=== PATIENT | female | born 1960 | race Caucasian/White ===

== ENCOUNTER 2016-03-14 10:02 | Day surgery (SDC) | payer BC ==
[~2016-03-14 10:02] MED LIST: ACETAMINOPHEN 500 MG TABLET PO PRN; HYDROmorphone HCL 2 MG/ML VIAL IV PRN; MAG HYDROX/ALUMINUM HYD/SIMETH 30 ML UDC PO PRN; MAGNESIUM HYDROXIDE 30 ML UDC PO PRN; ONDANSETRON HCL/PF 2 MG/ML VIAL IV PRN; PROMETHAZINE HCL 25 MG in DEXTROSE 5 % IN WATER 50 ML IV PRN; RINGERS SOLUTION,LACTATED 1,000 ML IV PRN; ROPIVACAINE HCL/PF 40 MG in NORMAL SALINE 16 ML IJ PRN; ZOLPIDEM TARTRATE 5 MG TABLET PO PRN; ceFAZolin SODIUM 1 GM VIAL IV PRN; diphenhydrAMINE HCL 50 MG/ML VIAL IV PRN
[2016-03-14] MEDS ORDERED: RINGERS SOLUTION,LACTATED 1,000 ML IV ONE (10:46)
[2016-03-14] MEDS ORDERED: BUPIVACAINE HCL/EPINEPHRINE 10 ML VIAL IJ ONE ×2 (11:20)
--- NOTE | 2016-03-14 12:26 | OR ---
Operative Report - Dictated Report Narrative: Date: 03/14/2016 Physician: Nahun Jackson M.D. Court Bailiff Or Sheriff: Juan Gonzalez PA-C Preoperative diagnosis: Left Knee medial meniscus tear, chondral injury of medial femoral condyle Postoperative diagnosis: Left Knee medial and lateral meniscus tears, chondral injury of medial femoral condyle Procedure: Left knee arthroscopy with partial medial and lateral meniscectomies , abrasion chondroplasty of medial femoral condyle Anesthesia: MAC Plus local Complications: None Estimated blood loss: Minimal Tourniquet time: None Specimens: None Retained implants: None Drains: None Indications: Jeannette Is a 55 year-old female who has been followed in my clinic with complaints of knee pain consistent with suspected medial meniscal and medial femoral condyle pathology. Physical exam and diagnostic imaging were consistent with these complaints and concern for medial meniscal and medial femoral condyle pathology. Conservative measures have failed including, but not limited to, passage of time, activity modification, medications, and injections. The risks, benefits, and alternatives were discussed in clinic. The risks being , bleeding, infection, blood clots, nerve, tendon, ligament , blood vessel injury, persistent pain, arthrosis, need for additional procedures, and persistent symptoms. Consent was obtained in the clinic. Procedure: After marking the correct extremity in the preoperative holding area, a timeout was performed in the operating room. IV antibiotics consisting of 1 g of Ancef were administered prior to the procedure. A well-padded tourniquet was applied to the operative upper thigh. The leg was prepped and draped in a standard sterile fashion. 0.5% Marcaine with epinephrine was infused into the projected portal sites as well as the intra-articular space. A kush incision was made for inferior lateral portal. A blunt trocar and cannula was introduced into the knee. The suprapatellar pouch revealed small chondral debris and no significant plica. The medial patella facet showed grade 1 chondral changes. The lateral patella facet showed no significant chondral changes. The trochlea showed scattered grade 1 chondral changes. The medial gutter revealed no loose bodies. The medial joint space was then entered utilizing a lateral post and valgus stress. A spinal needle was utilized for guidance into placement of an anterior medial portal. This was placed just superior to the medial meniscus ensuring that we could reach the posterior aspect of the medial joint space. A kush incision was made in the site, and the probe was introduced to the knee. The medial joint space was examined, and the medial femoral condyle showed a small 1 x 1 cm area of grade 3 chondral overcoiler the medial most aspect of the condyle. The medial tibial plateau showed grade 1 and scattered grade 2 chondral changes. The medial meniscus demonstrated a degenerative horizontal cleavage tear extending from the midportion of the body through the posterior horn. The notch was then examined, and the ACL was noted to be intact. The PCL was noted to be intact. The lateral joint space was then examined using a varus force in the figure 4 position. Lateral femoral condyle showed no chondral changes. Lateral tibial plateau showed grade 2 chondral changes. The lateral meniscus showed a large unstable bucket handle tear which had not been appreciated on the patient's MRI. The lateral gutter showed no loose bodies. Having identified the surgical pathology, a series of biters and sharmaine were utilized in order to debride the medial and lateral menisci. Abrasion chondroplasty was performed on the small lesion of the medial femoral condyle with a shaver. Once it was felt that we adequately addressed the pathology, the knee was thoroughly irrigated. The fluid was evacuated ensuring that we have removed all meniscal, chondral, and any other loose bodies. A final evaluation of the joint showed no additional pathology. The fluid was then evacuated of the knee, and the trocar and camera were removed from the joint. The wounds were closed with interrupted nylon after placing 20 mL of 0.2% ropivacaine into the joint. Dressings consisting of Xeroform, 4 x 4, ABD, soft roll, and an Phoenix were applied. All sponge, needle, blade, and instrument counts were correct prior to closing the wounds. The patient was awoken and transferred to the post-anesthesia care unit in stable condition.
[2016-03-14] MEDS: oxyCODONE HCL/ACETAMINOPHEN 1 TAB TABLET PO PRN ×2 (13:38→14:09)
[2016-03-14 14:55] VITALS: BP 110/66
[2016-03-14] MEDS ORDERED: SENNOSIDES/DOCUSATE SODIUM 1 TAB TABLET PO SCH (21:00)
== END 2016-03-14 10:03 | disposition home or self-care (01) ==
LOC: AMB 10:02
PROVIDERS: ATTEND Orthopaedic Surgery
PROC: 0SBD4ZZ Excision of Left Knee Joint, Percutaneous Endoscopic Approach (ICD-10-PCS; 2016-03-14)
PROC: 0SBD4ZZ Excision of Left Knee Joint, Percutaneous Endoscopic Approach (ICD-10-PCS; principal; 2016-03-14 11:30)
DX: M23.222 Derangement of posterior horn of medial meniscus due to old tear or injury, left knee (principal); M23.201 Derangement of unspecified lateral meniscus due to old tear or injury, left knee; E66.9 Obesity, unspecified; Z68.20 Body mass index [BMI] 20.0-20.9, adult

== ENCOUNTER 2016-08-25 09:58 | Emergency (ER) | payer BC ==
[2016-08-25 10:28] LABS: Urine Bilirubin Negative (NEGATIVE); Urine Ketone Negative (NEGATIVE); Urine Nitrite Negative (NEGATIVE); Urine Protein Negative (NEGATIVE); Urine Specific Gravity 1.025 SP.GR. (1.005-1.010); Urine Urobilinogen Normal (NORMAL); Urine pH 5.5 pH (5.0-7.0)
[2016-08-25 10:37] LABS: Urine Appearance Clear; Urine Bacteria TRACE; Urine Blood 5 /ul (NEGATIVE); Urine Color Pale Yellow; Urine RBC 0-5 /hpf (0-5); Urine WBC 0-5 /hpf (0-5)
[2016-08-25] MEDS ORDERED: METOCLOPRAMIDE HCL 5 MG/ML VIAL IV ONE (10:45)
[2016-08-25] MEDS ORDERED: KETOROLAC TROMETHAMINE 30 MG/ML VIAL IV ONE (10:45)
[2016-08-25] MEDS ORDERED: NORMAL SALINE 1,000 ML IV ONE (10:45)
[2016-08-25] MEDS ORDERED: METOCLOPRAMIDE HCL 5 MG/ML VIAL ONE (10:48)
[2016-08-25] MEDS ORDERED: KETOROLAC TROMETHAMINE 30 MG/ML VIAL ONE (10:48)
--- NOTE | 2016-08-25 10:51 | ERNOTE ---
Abdominal HPI - Narrative Date of Service: 08/25/16 - General Chief Complaint: Back Pain Time Seen by Provider: 08/25/16 10:34 Source: patient, RN notes reviewed Exam Limitations: no limitations - Immun/Allergies/Home Medications Immunizatons: IMMUNIZATION HX Immunizations Up to Date Yes History of Influenza Vaccine Yes Hx Pneumococcal Vaccination No Allergies/Adverse Reactions: Allergies No Known Allergies Allergy (Verified 08/25/16 10:06) Home Medications: HOME MEDICATIONS Carnegie-3 Fatty Acids [Fish Oil] 300 mg PO 3XW 03/06/15 [Last Taken Unknown] Phentermine HCl [Adipex-P] 37.5 mg PO BID 03/06/15 [Last Taken Unknown] Vitamin E 1,000 unit PO 3XW 03/06/15 [Last Taken Unknown] Acetaminophen [Tylenol] 650 mg PO QID PRN #0 tablet 03/14/15 [Last Taken Unknown ] Ascorbic Acid [Vitamin C] 1,000 mg PO 3XW 03/13/16 [Last Taken Unknown] Polyethylene Glycol 3350 [Miralax] 17 gm PO DAILY 03/13/16 [Last Taken Unknown] Topiramate [Topamax] 25 mg PO BID 03/13/16 [Last Taken Unknown] HYDROcodone/ACETAMINOPHEN [Maple 5-325] 1 - 2 tab PO Q6H PRN #20 tab 08/25/16 [ Last Taken Unknown] Ondansetron [Zofran Odt] 8 mg PO Q8H PRN #12 tab 08/25/16 [Last Taken Unknown] - History of Present Illness Narrative: Jeannette is a 56 year old female who began having left flank pain at 0630 this morning. The pain is radiating into her left lower quadrant. She reports feeling fine went she went to bed last night. She has had UTI's in the past but none recently. She does have chronic problems with constipation and takes Miralax. She has not taken anything for pain. She also reports nausea. Date (Duration): 08/25/16 Time (Timing): 06:30 Timing: constant Quality: severe, aching Activities at Onset: sleep Prior Abdominal Problems: Present: none Prior Treatment: Absent: recently seen, currently on antibiotics Review of Systems - Review of Systems Constitutional: Present: chills. Absent: recent illness, fever EYE: Present: no symptoms reported ENT: Present: no symptoms reported Respiratory: Absent: shortness of breath, cough Cardiology: Present: no symptoms reported Gastrointestinal/Abdominal: Present: nausea, abdominal pain. Absent: vomiting, diarrhea Genitourinary: Absent: frequency, dysuria, hematuria, decreased urinary output Musculoskeletal: Present: back pain. Absent: neck pain Skin: Absent: rash, lesions Neurological: Absent: headache, dizziness/light-headedness Endocrine: Present: no symptoms reported Hematologic/Lymphatic: Present: no symptoms reported Psych: Present: no symptoms reported - Patient's Past Medical History Patient History - Medical: GERD, Other Patient History - Cardiac/Respiratory: No pertinent hx Patient History - Cancer: No Hx of Cancer Patient History - Surgical Procedures: Colonoscopy, D & C, Other Patient History - Other: None LMP (females 10-50): Menopausal - Family History Mother Family History - Medical: , Diabetes Type 1, Other Family History - Cardiac/Respiratory: Hypertension, Hyperlipidemia Family History - Cancer: No pertinent family hx Father Family History - Medical: , Other Family History - Cardiac/Respiratory: No pertinent hx Family History - Cancer: No pertinent family hx Sister Family History - Medical: Diabetes Type 2, Other Family History - Cardiac/Respiratory: No pertinent hx Family History - Cancer: Other - Social History Living Situations: home Abuse History: No History of abuse Psych History: No pertinent hx Smoking Status: Never smoker Alcohol Use: none Drug Use: none - Immunizations Immunizations Up to Date: Yes Hx Pneumococcal Vaccination: No History of Influenza Vaccine: Yes Physical Exam - Physical Exam General Appearance: Present: alert, mild distress, thin Respiratory: Present: no respiratory distress, normal breath sounds, no accessory muscle use, lungs clear Cardiovascular/Chest: Present: regular rate, rhythm, no murmur, normal peripheral pulses Gastrointestinal/Abdominal: Present: normal bowel sounds, nondistended, soft, tenderness - moderate LLQ, mild suprapubic. Absent: mass, hernia Back Exam: Present: normal range of motion, no vertebral tenderness, CVA tenderness (L). Absent: CVA tenderness (R) Extremity Exam: Present: normal inspection, normal range of motion, no edema Neurological Exam: Present: alert, oriented, normal mood/affect, no motor/ sensory deficits Skin Exam: Present: normal color, warm/dry ED Progress - Results and Orders Patient's Lab Results:: I have reviewed the patient's lab results. - Vital Signs Patient's Vital Signs:: I have reviewed the patient's vital signs. Vital Signs: Vital Signs 08/25/16 10:03 Temperature 36.0 C L Pulse Rate 58 L Respiratory 16 Rate Blood Pressure 150/89 O2 Sat by Pulse 100 Oximetry - CT/Ultrasound CT/Ultrasound Narrative: CT of abdomen and pelvis shows a 2mm calcification in the left distal ureter near the UVJ with left sided hydronephrosis. Also shows constipation and diverticulosis without diverticulitis. - Progress/Reassessment Chief Complaint: Back Pain Progress:: Improved Progress Note-Subjective: 08/25/16 11:43 Pain improved with Toradol but still having some nausea after Reglan. Zofran ordered. CT of abdomen and pelvis ordered with contrast - patient has hx of diverticulosis as well as symptoms of possible ureteral calculi with her LLQ and flank pain. Plan - Plan Plan: Patient is much more comfortable. Discussed CT results and outpatient management. Patient in agreement with plan. Departure - Departure Clinical Impression: Ureteral calculus Disposition: Home Follow Up Needed Condition: Stable Instructions: Kidney Stones, [id number] Additional Instructions: Drink lots of water Strain urine Contact urology if you have not passed the stone by Sunday or Sunday Referrals: Vijay Breaux MD [Associate] - Prescriptions: HYDROcodone/ACETAMINOPHEN [Maple 5-325] 1 - 2 tab PO Q6H PRN #20 tab PRN Reason: Pain Ondansetron [Zofran Odt] 8 mg PO Q8H PRN #12 tab PRN Reason: Nausea
[2016-08-25 11:01] LABS: Hematocrit 38.8 % (37.0-47.0); Hemoglobin 13.1 gm/dL (12.5-16.0); Mean Cell Volume 89.6 fl (78-100); Mean Corpuscular Hemoglobin 30.3 pg (27-31); Mean Corpuscular Hgb Conc 33.8 g/dl (32-36); Mean Platelet Volume 9.1 fl (6.0-9.5); Neutrophil # 6.9 K/mm3 (1.3-6.0); Neutrophil % 82.5 % (42-75.0); Platelet Count 265 K/mm3 (150-450); Red Blood Count 4.33 M/mm3 (4.2-5.4); Red Cell Distribution Width 11.9 % (11.5-14.0); White Blood Count 8.4 K/mm3 (4.0-10.5)
[2016-08-25 11:25] LABS: Albumin * 4.1 gm/dl (3.4-5.0); Anion Gap 12.3 mmol/L (6.8-13.8); BUN/Creatinine Ratio 22.5 (9.0-21.6); Bilirubin, Total 0.3 mg/dL (0.0-1.1); Ca. Corrected For Albumin 9.3 mg/dL (8.4-10.2); Calcium * 9.7 mg/dL (7.9-10.9); Carbon Dioxide 27.5 mmol/L (24-32.6); Potassium 3.8 mmol/L (3.4-4.6); Total Protein 8.2 gm/dL (6.2-8.2)
[2016-08-25] MEDS ORDERED: ONDANSETRON HCL/PF 2 MG/ML VIAL IV ONE (11:41)
[2016-08-25] MEDS ORDERED: DIATRIZOATE MEGLU/DIATRIZO SOD 30 ML BTL PO ONE (11:42)
[2016-08-25] MEDS ORDERED: ONDANSETRON HCL/PF 2 MG/ML VIAL ONE (11:45)
[2016-08-25] MEDS ORDERED: DIATRIZOATE MEGLU/DIATRIZO SOD 30 ML BTL ONE (11:47)
[2016-08-25] MEDS ORDERED: MORPHINE SULFATE 2 MG/ML DISP.SYRIN IV ONE (12:45)
[2016-08-25] MEDS ORDERED: MORPHINE SULFATE 2 MG/ML DISP.SYRIN ONE (12:46)
[2016-08-25 15:13] VITALS: BP 143/84
== END 2016-08-25 15:05 | disposition home or self-care (01) ==
LOC: ER 09:58
DX: N20.1 Calculus of ureter (principal); K21.9 Gastro-esophageal reflux disease without esophagitis
CPT/HCPCS: 36415; 74177; 80053; 81001; 85025; 96374; 96375; 99284; J2405